=== PATIENT | female | born 1950 | race Caucasian/White ===

== ENCOUNTER → 2021-01-09 | Outpatient (CLI) | payer OTHER ==
[~2021-01-09] MED LIST: AMOX TR-K CLV1 EAC4 PO; CELEXA40 MG PO; CLONAZEPAM PO; DULOXETINE HCL20 MG PO; DYAZIDE; FOLIC ACID1 MG PO; FUROSEMIDE 40 M40 M1 PO; IRON325 PO; KLOR-CON 1010 MEQ PO; LISINOPRIL10 MG PO; LISINOPRIL40 MG PO; LOPRESSOR25 PO; METOPROLOL SUCC50 MG PO; MUPIROCIN22 GM TOP; NICOTINE TRANSD21 M1 TD; NORCO 5-325 TA1 EAC1 PO; PEPCID40 MG PO; PLAVIX 75 MG TA75 M1 PO; ROSUVASTATIN CA10 MG PO; TRIAMTERENE-HC1 EAC3 PO; TYLENOL EXTRA500 MG PO; VITAMIN B-12500 MC5 PO; VITAMIN C500 M2 PO; VITAMIN D5000 UNIT PO; WELLBUTRIN PO; XANAX 0.5 MG0.5 MG PO; ZOLOFT25 MG PO
== END ==
LOC: LAB 13:43
PROVIDERS: ATTEND Ophthalmology
DX: Z01.812 Encounter for preprocedural laboratory examination (principal); Z20.822 Contact with and (suspected) exposure to COVID-19

== ENCOUNTER 2021-01-12 07:11 | Day surgery (SDC) | payer OTHER ==
[~2021-01-12] VITALS: Ht 167.6 cm; Wt 61.2 kg
--- NOTE | ~2021-01-12 | O ---
[facility] [place] [address] OPERATIVE REPORT Name: IVÁN SMITH Room #: 150-7 [facility]..#: [id number] Admission: 01/12/21 Attend Phys: Brad Cates MD Discharge: Date of : 54 Report #: [id number] THIS REPORT FOR: cc: Thomas Myrick Simon FNP White, William L. MD ~ DATE OF SERVICE: 01/12/2021 [employer]ACHINE [employer]: None. PREOPERATIVE DIAGNOSIS: Unilateral right lower lid entropion. POSTOPERATIVE DIAGNOSIS: Unilateral right lower lid entropion. OPERATION PERFORMED: Unilateral right lower lid entropion repair. ANESTHESIA: Local with IV sedation. COMPLICATIONS: None. INDICATIONS FOR PROCEDURE: This patient has unilateral lower lid entropion with chronic irritation and discharge. The current procedure is being undertaken in order to improve the patient's level of comfort and visual function. Informed consent was obtained to include but not limited to the loss of vision, bleeding, infection, scarring, failure to improve the problem and need for further surgery. DESCRIPTION OF OPERATION: The patient was taken to the operating room, where 2% Xylocaine with epinephrine mixed with equal parts of 0.75% Marcaine with Wydase was administered transcutaneously and transconjunctivally to the lower lid and lateral canthal area. The patient was then prepped and draped in the usual sterile fashion. A Marc clamp was used to clamp the lateral canthus, following which a sharp canthotomy and cantholysis were performed. Hemostasis was achieved with a monopolar cautery, as it was throughout the case. A tarsal strip was prepared laterally, removing the lash-bearing portion of the redundant lid margin and the redundant tarsal plate. A transconjunctival dissection was then undertaken just inferior to the lower border of the tarsal plate. The lower lid retractors were disinserted from the inferior border of the tarsal plate. The lower lid retractors were then advanced and reattached to the anterior surface of the tarsal plate with mattress 5-0 chromic sutures passed transconjunctivally and secured in the infraciliary margin. The tarsal strip was then secured laterally with 2 interrupted 5-0 Prolene sutures. The subcutaneous structures and the skin were then closed with multiple interrupted 6-0 plain gut sutures so the lateral canthal angle was sharply reformed. The [address] [address] OPERATIVE REPORT Name: IVÁN SMITH Room #: 150-7 [facility]#: [id number] Admission: 01/12/21 Attend Phys: Brad Cates MD Discharge: Date of : 54 Report #: [id number] wound was then cleaned and dressed with ophthalmic antibiotic ointment. The patient was then transported to the recovery area having tolerated the procedure well with no anesthetic or operative complications being noted. By: [id number] MD juan Mahmood
[2021-01-12 11:02] VITALS: BP 140/92
== END 2021-01-12 10:45 | disposition home or self-care (01) ==
LOC: TBA 07:11 → OR 07:11 → TBA 07:22 → OR 10:45
PROVIDERS: ATTEND Ophthalmology
DX: H02.002 Unspecified entropion of right lower eyelid (principal); I10 Essential (primary) hypertension; E78.5 Hyperlipidemia, unspecified; F32.9 Major depressive disorder, single episode, unspecified; D64.9 Anemia, unspecified; Z98.890 Other specified postprocedural states; Z79.899 Other long term (current) drug therapy; Z98.41 Cataract extraction status, right eye; Z98.42 Cataract extraction status, left eye; Z86.73 Personal history of transient ischemic attack (TIA), and cerebral infarction without residual deficits; Z87.891 Personal history of nicotine dependence
CPT/HCPCS: 50010; 50101; 50386; 50398; 51636; 56527; 56531; 62110; 62850; 70005